=== PATIENT | male | born 1980 | race Caucasian/White ===

== ENCOUNTER → 2021-12-08 08:26 | Outpatient (CLI) | payer OTHER, SELFPAY ==
[2021-12-08 11:51] LABS: Alanine Aminotransferase 27 IU/L (<50); Albumin 4.6 g/dL (3.5-5.0); Albumin Globulin Ratio 1.7 (1.0-2.8); Alkaline Phosphatase 52 U/L (38-126); Aspartate Aminotransferase 37 IU/L (17-59); BUN Creatinine Ratio 14.1 (6-22); Blood Urea Nitrogen 13 mg/dL (9-20); Carbon Dioxide 27 mmol/L (22-32); Chloride 101 mmol/L (98-107); Cholesterol 183 mg/dL (140-199); Estimated Glomerular Filt Rate > 60 mL/min (>60); Globulin 2.7 g/dL (1.7-4.1); Glucose 107 mg/dL (70-100); HDL Cholesterol 32 mg/dL (40-60); HEMOLYSIS < 15 (0-50); LDL Cholesterol Calculated 100 mg/dL (<100); Potassium 4.4 mmol/L (3.4-5.1); Sodium 138 mmol/L (137-145); Total Protein 7.3 g/dL (6.3-8.2); Triglycerides 254 mg/dL (35-150)
== END ==
PROVIDERS: PCP Internal Medicine; Referring Provider Internal Medicine; Visit Provider Internal Medicine
DX: I10 Essential (primary) hypertension (principal); Z13.6 Encounter for screening for cardiovascular disorders
CPT/HCPCS: 36415; 80053; 80061

== ENCOUNTER → 2022-12-11 09:33 | Outpatient (CLI) | payer OTHER, SELFPAY ==
[2022-12-11 10:11] LABS: BUN Creatinine Ratio 13.8 (6-22); Blood Urea Nitrogen 13 mg/dL (9-20); Calcium 9.5 mg/dL (8.4-10.2); Carbon Dioxide 32 mmol/L (22-32); Chloride 98 mmol/L (98-107); Estimated Glomerular Filt Rate > 60 mL/min (>60); Glucose 109 mg/dL (70-100); HEMOLYSIS < 15 (0-50); Magnesium 1.9 mg/dL (1.6-2.3); Potassium 3.7 mmol/L (3.4-5.1); Sodium 138 mmol/L (137-145)
== END ==
PROVIDERS: PCP Internal Medicine; Referring Provider Internal Medicine; Visit Provider Internal Medicine
DX: I10 Essential (primary) hypertension (principal)
CPT/HCPCS: 36415; 80048; 83735

== ENCOUNTER → 2023-09-01 10:38 | Outpatient (CLI) | payer OTHER, SELFPAY ==
[2023-09-01 11:25] LABS: Influenza A - CEPHEID Flu A NEGATIVE (NEGATIVE); Influenza B - CEPHEID Flu B NEGATIVE (NEGATIVE); Respiratory Syncytial Virus Negative (Negative)
[2023-09-01 11:50] LABS: COVID-19 CEPHEID 4-PLEX PCR Negative (Negative)
== END ==
PROVIDERS: PCP Internal Medicine; Visit Provider Physician Assistant
DX: R05.1 Acute cough (principal)
CPT/HCPCS: 0241U

== ENCOUNTER → 2023-12-28 08:43 | Outpatient (CLI) | payer OTHER, SELFPAY ==
--- NOTE | 2023-12-28 08:43 | DI.RAD.S_ITS ---
PROCEDURE: XR FOOT LT MIN 3V INDICATIONS: Left foot and great toe pain TECHNIQUE: 3 views of the foot were acquired. COMPARISON: None. FINDINGS: Bones: Minimal 1st MTP and interphalangeal degenerative changes. No acute displaced fracture or dislocation. Bipartite lateral sesamoid Soft tissues: No suspicious calcifications. Calcaneal enthesopathy is present IMPRESSION: Minimal 1st MTP and interphalangeal degenerative changes. Calcaneal enthesopathy. If there is high concern for further derangement, consider MRI evaluation. Dictated by: Bridger Atwood M.D. on 12/28/2023 at 9:05 Approved by: Bridger Atwood M.D. on 12/28/2023 at 9:06
== END ==
PROVIDERS: PCP Internal Medicine; Referring Provider Physician Assistant Surgical; Visit Provider Physician Assistant Surgical
DX: M77.32 Calcaneal spur, left foot (principal); M79.672 Pain in left foot; M79.675 Pain in left toe(s)
CPT/HCPCS: 73630

== ENCOUNTER → 2024-01-11 10:15 | Outpatient (CLI) | payer OTHER, SELFPAY ==
[2024-01-11 12:26] LABS: Alanine Aminotransferase 30 IU/L (<50); Albumin 4.6 g/dL (3.5-5.0); Albumin Globulin Ratio 1.5 (1.0-2.8); Alkaline Phosphatase 64 U/L (38-126); Aspartate Aminotransferase 27 IU/L (17-59); BUN Creatinine Ratio 14.8 (6-22); Bilirubin Total 0.5 mg/dL (0.2-1.3); Blood Urea Nitrogen 12 mg/dL (9-20); Calcium 9.8 mg/dL (8.4-10.2); Carbon Dioxide 27 mmol/L (22-32); Chloride 102 mmol/L (98-107); Estimated Glomerular Filt Rate > 60 mL/min (>60); Globulin 3.1 g/dL (1.7-4.1); Glucose 106 mg/dL (70-100); HEMOLYSIS < 15 (0-50); Potassium 4.7 mmol/L (3.4-5.1); Sodium 138 mmol/L (137-145); Total Protein 7.7 g/dL (6.3-8.2); Uric Acid 5.4 mg/dL (3.5-8.5)
[2024-01-11 12:55] LABS: TSH w/ Reflex to FT4 1.59 uIU/mL (0.47-4.68)
== END ==
PROVIDERS: PCP Internal Medicine; Referring Provider Internal Medicine; Visit Provider Internal Medicine
DX: M10.9 Gout, unspecified (principal); M54.9 Dorsalgia, unspecified; I10 Essential (primary) hypertension; G89.29 Other chronic pain
CPT/HCPCS: 36415; 80053; 84443; 84550

== ENCOUNTER → 2024-04-25 08:18 | Outpatient (CLI) | payer OTHER, SELFPAY ==
--- NOTE | 2024-04-25 08:19 | DI.MRI.S_ITS ---
PROCEDURE: MR CERVICAL SPINE WO CON INDICATIONS: spinal stenosis TECHNIQUE: Noncontrast sagittal T1 spin echo and T2 fast spin echo, sagittal STIR, foraminal oblique sagittal T2 fast spin echo, and axial gradient echo or T2 fast spin echo through the cervical spine. COMPARISON: None. FINDINGS: Image quality: Diagnostic. Patient motion artifact axial images.. Alignment and Curvature: There is normal bony alignment. Bone Marrow: Marrow demonstrates normal overall signal. Spinal Cord: Visualized spinal cord has normal size and signal. No cerebellar tonsillar herniation. Paraspinous Soft Tissues: No paravertebral masses. Prevertebral soft tissues are normal in thickness. C2-C3: Normal appearance. C3-C4: Normal appearance. C4-C5: Normal appearance. C5-C6: Diffuse disc bulge, eccentric to the flattening on the ventral cord. Borderline central canal stenosis, with AP diameter measuring 9.8 mm. Reference axial T2 image 33 of series 4. There is slightly greater stenosis of the left side of the canal. Bilateral uncovertebral joint hypertrophy. [id number] right foraminal stenosis. Moderate to severe left foraminal stenosis with mild impingement on the exiting left C6 nerve root. Reference left foraminal oblique image 11 of series 7. C6-C7: Disc height loss. Diffuse disc bulge flattening the ventral cord. Moderate to severe central canal stenosis. AP diameter of the central canal measures 7.7 mm. Reference axial image 38 of series 4. There is bilateral uncovertebral joint hypertrophy. There is moderate to severe narrowing of the medial aspect of the right foramen and severe left foraminal narrowing. There is bilateral foraminal nerve root impingement, left greater than right. C7-T1: Normal appearance. IMPRESSION: 1. Findings are most significant at C6-C7. There is moderate to severe central canal stenosis. There is bilateral foraminal C7 nerve root impingement. 2. At C5-C6 there is borderline canal stenosis. There is left foraminal C6 nerve root impingement. Dictated by: Graham Kruse M.D. on 04/25/2024 at 11:03 Approved by: Graham Kruse M.D. on 04/25/2024 at 11:13
== END ==
PROVIDERS: PCP Internal Medicine; Referring Provider Physical Medicine & Rehabilitation Pain Medicine; Visit Provider Physical Medicine & Rehabilitation Pain Medicine
DX: M48.02 Spinal stenosis, cervical region (principal)
CPT/HCPCS: 72141

== ENCOUNTER 2024-04-27 09:45 | Day surgery (SDC) | payer OTHER, SELFPAY ==
--- NOTE | 2024-04-27 | PATH_ITS ---
[facility] Accession Number: [id number] No. of containers..01 Tissue . 01 Material submitted: . colon - TRANSVERSE POLYP . 01 Diagnosis: A. TRANSVERSE COLON, POLYPECTOMY: Sessile serrated adenoma/polyp. [facility] 05/02/2024 1424 Local . 01 Electronically signed: . Daphnie Lagunas MD, Pathologist NPI- [id number] . 01 Gross description: . TRANSVERSE POLYP: Received in formalin is 1 fragment(s) of chopra, soft tissue measuring 0.4 x 0.3 x 0.2 cm submitted entirely in 1 cassette(s) /CINDY 04/28/2024 2329 Local . 01 Pathologist provided ICD-10: Z12.11 . 01 CPT . 876093 Specimen Comment: A courtesy copy of this report has been sent to [phone] Performed at: [address] [facility] [address], [place], [place] [id number] MD Ramsey Brown MD Phone: [phone]
[2024-04-27 10:16] VITALS: BP 152/101; PULSE 105; RESP 18; TEMP 37.5; O2SAT 99
--- NOTE | 2024-04-27 10:41 | P.HP_ITS ---
History of Present Illness History of Present Illness Date Patient Seen: 04/27/24 Time Patient Seen: 10:41 Chief complaint: Colonoscopy Narrative: Humberto is a 44-year-old man who is here for his first screening colonoscopy. No family history of colon cancer. [facility] Medical History (Updated 04/27/24 @ 10:42 by Arcenio López MD) TMJ (temporomandibular joint disorder) Neck pain (~2014) Shoulder pain (~2018) Foot pain (~1977) Ankle pain (~1989) Chicken pox Chronic back pain (~2009) Tinnitus (~2009) Hearing loss (~2009) Essential hypertension (~2015) Surgical History No pertinent past surgical history Family History Father No problems noted. Social History Smoking Status: Former smoker Meds Home Medications and Allergies Home Medications Medication Instructions Recorded Confirmed Type amlodipine 5 mg tablet 5 mg PO DAILY #90 tabs 01/11/24 04/27/24 Rx Allergies Allergy/AdvReac Type Severity Reaction Status Date / Time No Known Drug Allergies Allergy Verified 04/27/24 10:12 Exam Vital Signs (past 8 hours): - 04/27/24 10:16 Temperature 99.5 F Pulse Rate 105 H Respiratory Rate 18 Blood Pressure 152/101 H Pulse Oximetry 99 Oxygen Delivery Method Room Air Oxygen Delivery Method Room Air Const General: healthy appearing Resp Effort & Inspection: normal respiratory effort Assessment & Plan Assessment and plan (1) Colon cancer screening: Status: Acute Plan Colonoscopy Time-Based Coding :: [TOTAL MINUTES] spent with patient and on the chart (including review of chart, obtaining history, exam, reviewing outside data, placing orders, documenting exam and treatment plan, and counseling patient) on [DATE].
--- NOTE | 2024-04-27 11:47 | PM.OP.COLON ---
Operative Date/Time/Diagnoses Date of procedure: 04/27/24 Time of procedure: 11:47 Pre-op diagnosis: Colon cancer screening Post-op diagnosis: same Procedure & Clinicians Study performed: Colonoscopy Same procedure as scheduled: Yes Surgeon: Arcenio López Procedure Notes Procedure in detail: Surgeon: Arcenio López MD Anesthesia: Meera Rodriguez CRNA Procedure: The patient was brought to the endoscopy suite, placed in left lateral decubitus position. The patient was connected to monitoring devices. A time-out was performed. Sedation was administered. Once the patient was adequately sedated, a digital rectal exam was performed and was normal. The scope was then inserted and advanced to the cecum where the appendiceal orifice was identified and photographed. The scope was then slowly withdrawn over greater than 6 minutes. The mucosa was thoroughly inspected. There was a 5 mm polyp in the transverse colon removed with a cold snare. The scope was retroflexed in the rectum. No other abnormalities were found. The scope was straightened and removed. The patient was awakened and brought to recovery. Scope withdrawal time: 12 minutes Sedation time: 22 minutes EBL: 2 mL Findings: 5 mm polyp in the transverse colon Post-procedure Disposition: PACU
[2024-04-27 11:50] VITALS: BP 105/70; PULSE 87; RESP 15; TEMP 37.2; O2SAT 95
[2024-04-27 11:55] VITALS: BP 105/70; PULSE 85; RESP 14; TEMP 37.2; O2SAT 96
[2024-04-27 12:00] VITALS: BP 105/68; PULSE 85; RESP 18; TEMP 37.2; O2SAT 100
== END 2024-04-27 12:12 | disposition home or self-care (01) ==
PROVIDERS: PCP Internal Medicine; Referring Provider Surgery; Visit Provider Surgery
PROC: 0DJD8ZZ Inspection of Lower Intestinal Tract, Via Natural or Artificial Opening Endoscopic (ICD-10-PCS; CPT 45378; principal; 2024-04-27 11:00)
DX: Z12.11 Encounter for screening for malignant neoplasm of colon (principal); D12.3 Benign neoplasm of transverse colon
CPT/HCPCS: 45385; J2405; J2704